=== PATIENT | male | born 1955 | race Caucasian/White ===

== ENCOUNTER 2019-08-20 09:35 | Day surgery (SDC) | payer BC ==
[2019-08-17 09:35] LABS: HEMATOCRIT 40.9 % (42.0-54.0); HEMOGLOBIN 13.6 g/dL (13.5-17.5); MCH 32.1 pg (26.0-34.0); MCHC 33.3 g/dL (31.0-37.0); MCV 96.5 fL (80.0-100.0); MEAN PLATELET VOLUME 9.7 fL (7.4-10.4); RBC 4.24 10x6/uL (4.20-6.10); RDW 13.5 % (11.5-14.5); WBC 5.8 10x3/uL (4.8-10.8)
[~2019-08-20] VITALS: Ht 193 cm; Wt 127.0 kg
[~2019-08-20 09:35] MED LIST: CALCIPOTRIENE120 GM TOPICAL; CIPRO500 MG PO; CLEOCIN HCL300 MG PO; COLACE100 MG PO; CYCLOBENZAPRINE10 MG PO; ELIQUIS2.5 MG PO; HYDROCODONE-APA1 TAB PO; IBUPROFEN600 MG PO; LISINOPRIL5 MG PO; PERCOCET 10/3251 TA1 PO; PRILOSEC10 MG PO; RESTORIL15 MG PO; TRAZODONE HCL150 MG PO; TRIAMCINOLONE A60 M1 TP
[2019-08-20] MEDS ORDERED: MELATONIN5 MG PO (09:50)
[2019-08-20 10:10] VITALS: BP 131/76; Ht 193 cm; Wt 127.0 kg
[2019-08-20] MEDS ORDERED: HYDROCODON-ACE1 EA10 PO (13:05)
--- NOTE | 2019-08-20 14:42 | NUR ---
1430 PT REQUESTED A RX FOR SLEEP. DR HATCH IN OR. RX FOR PAIN GIVEN TO PT
--- NOTE | 2019-08-27 08:52 | OP ---
PATIENT NAME: CLAIRE CARDOZO MEDICAL RECORD: [id number] :51 LOCATION:D.OPS ADMISSION DATE: SURGEON: TYLER HATCH MD DATE OF OPERATION: 08/20/2019 PREOPERATIVE DIAGNOSIS: Right peroneus longus tear. POSTOPERATIVE DIAGNOSES: 1. Right peroneus longus tear. 2. Substantial adhesions. PROCEDURES: 1. Repair of the right peroneus longus with debridement of the tendinous sheath and synovectomy. 2. Application of PRP. SURGEON: Tyler Hatch MD REFERENCE TEST CLERK: Huy Causey ANESTHESIA: General. INTRAOPERATIVE COMPLICATIONS: None. SUMMARY OF PATHOLOGIC FINDINGS: A portion of the patient's peroneus longus was in a pretty pitiful shape with scar tissue and the sheath itself and a very long split tear. The patient also had intratendinous chondral calcific bodies. These were excised. OPERATIVE SUMMARY IN DETAIL: After obtaining the appropriate preoperative orthopedic surgery consent as well as anesthetic consultation, evaluation and clearance, the patient was brought to the operating room and placed on the operating table in supine position. After general laryngeal mask airway was administered, tourniquet was placed about the proximal aspect of the right lower extremity. Right lower extremity was then prepped and draped in routine sterile fashion. The patient had been placed in a left lateral decubitus position with all pressure points padded. He was held firmly to the operating table using the vacuum pack suction system. At this point, the leg was elevated and exsanguinated, tourniquet was inflated to 350 mmHg. Curvilinear incision was made across the posterior lateral aspect of the lateral malleolus in keeping with a peroneus tendon sheath. This was dissected down to the peroneus longus and brevis. The brevis was in excellent overall condition. The longus; however, was yellow tendinotic, very fibrotic with adherence to the tendon sheath. Longitudinal split was also noted at the area the patient had large calcific bodies. Serial and sequential release of the tendon was performed all the way distally and proximally. The tendon was then debrided of 2 large what appeared to be osteochondral bodies; however, they were sent to pathology for further evaluation. At this point, a 2-0 FiberWire was used in a running fashion to reapproximate the tendon on both sides for good reapproximation. At this point, approximately 10 cc of PRP was injected into the tendon itself in and around the area of the wound for assistance in healing. The peroneal tendon sheath was gently reapproximated as to not over tighten the peroneus longus. The wound was then closed by Huy Causey with 2-0 Vicryl followed by 4-0 Prolene in running fashion. Sterile dressings were applied. The patient was awakened, taken to recovery room in stable condition. All final needle and sponge counts OPERATIVE REPORT [id number] CLAIRE CARDOZO were correct. TRANSINT:[id number] Voice Confirmation ID: [id number] DOCUMENT ID: [id number] HOLDEN LUTHER, TYLER GUPTA at 0852 CC: [id number] DICTATION DATE: 08/23/19 1133 GUEST RELATIONS RECEPTIONIST: 08/23/19 1207 [facility] 08/20/[address] [id number]
== END 2019-08-20 15:50 | disposition home or self-care (01) ==
LOC: D.OPS 09:35 → D.PAN 11:45 → D.OPS 14:45
PROVIDERS: Anesthesiology; ATTEND Orthopaedic Surgery
DX: S86.311A Strain of muscle(s) and tendon(s) of peroneal muscle group at lower leg level, right leg, initial encounter (principal); X58.XXXA Exposure to other specified factors, initial encounter